=== PATIENT | male | born 1985 | race Caucasian/White ===

== ENCOUNTER 2019-03-21 01:43 | Emergency (ER) | payer OTHER ==
[~2019-03-21] VITALS: Ht 177.8 cm; Wt 86.2 kg
[2019-03-21 01:56] VITALS: BP 161/100
[2019-03-21 02:15] LABS: BASO % 0 % (0-3); EOS # 0.2 x10^3/uL (0.0-0.7); EOS % 1 % (0-3); HEMATOCRIT 46.4 % (39.0-53.0); HEMOGLOBIN 15.9 g/dL (13.0-17.5); LYMPH # 3.5 x10^3/uL (1.0-4.8); LYMPH % 24 % (24-48); MEAN CORPUSCULAR HEMOGLOBIN 30 pg (25-35); MEAN CORPUSCULAR HGB CONC 34 g/dL (31-37); MEAN CORPUSCULAR VOLUME 87 fL (79-100); MONO # 1.5 x10^3/uL (0.0-1.1); MONO % 10 % (0-9); NEUT # 9.2 x10^3/uL (1.8-7.7); NEUT % 64 % (31-73); PLATELET COUNT 313 x10^3/uL (140-400); RED BLOOD COUNT 5.33 x10^6/uL (4.30-5.70); RED CELL DISTRIBUTION WIDTH 14.5 % (11.5-14.5); WHITE BLOOD COUNT 14.4 x10^3/uL (4.0-11.0)
[2019-03-21 02:23] LABS: CALCIUM 9.2 mg/dL (8.5-10.1); CREATININE 0.7 mg/dL (0.7-1.3); GFR 130.7; POTASSIUM 3.8 mmol/L (3.5-5.1)
[2019-03-21 02:30] LABS: ALBUMIN 4.5 g/dL (3.4-5.0); ALBUMIN/GLOBULIN RATIO 1.2 (1.0-1.7); MAGNESIUM 2.1 mg/dL (1.8-2.4); TOTAL PROTEIN 8.4 g/dL (6.4-8.2)
[2019-03-21 02:45] LABS: LI < 0.2 mmol/L (0.6-1.2)
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
== END 2019-03-21 02:34 | disposition left against medical advice (07) ==
LOC: ER 01:43
DX: F20.0 Paranoid schizophrenia (principal); F31.9 Bipolar disorder, unspecified
CPT/HCPCS: 36415; 80053; 80178; 83735; 85025; 99284; G0480